=== PATIENT | female | born 2000 | race Caucasian/White ===

== ENCOUNTER 2020-06-26 16:01 | Emergency (ER) | payer OTHER ==
[~2020-06-26] VITALS: Ht 182.9 cm; Wt 104.3 kg
[2020-06-26 16:07] VITALS: BP 135/81
--- NOTE | 2020-06-26 16:22 | ER.PDOC ---
General Chief Complaint: Requesting Medical Care Stated Complaint: POSS UTI Time seen by MD: 16:16 Source: patient Exam Limitations: no limitations History of Present Illness Initial Comments Patient c/o 10 day history of urinary frequency, dysuria, hesitancy. She took AZO and drank lots of water and cranberry juice (which sometimes resolves issue) without relief. She denies fever. 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)) Family History Significant Family History: no pertinent family hx Social History Smoking: cigarettes Alcohol Use: occassionally Drug Use: marijuana Review of Systems Constitutional: no symptoms reported EENTM: no symptoms reported Respiratory: no symptoms reported Cardiovascular: no symptoms reported Gastrointestinal: no symptoms reported Genitourinary: burning, dysuria, frequency, urgency Musculoskeletal: no symptoms reported Skin: no symptoms reported Psychiatric/Neurological: no symptoms reported Endocrine: no symptoms reported Hematologic/Lymphatic: no symptoms reported All Other Systems: Reviewed and Negative Physical Exam General Appearance: No Apparent Distress, WD/WN EENT: eyes nml inspection, nml ENT inspection Neck: nml inspection, non-tender Cardiovascular/Respiratory: Regular Rate, Rhythm, Normal Breath Sounds, No Respiratory Distress Abdomen: Normal Bowel Sounds, Non Tender, Soft Back: nml inspection Extremities: No Pedal Edema, No Calf Tenderness Neurologic/Psychiatric: Alert, Normal Mood/Affect, Oriented x 3 Skin: Normal Color, Warm/Dry Results/Orders Results/Orders Orders - GEORGINA JOHN DO Urinalysis (06/26/20 16:14) Hcg Urine (06/26/20 16:14) Urine Culture (06/26/20 16:07) Vital Signs Date Time Temp Pulse Resp B/P (MAP) Pulse Ox O2 Delivery O2 Flow Rate FiO2 06/26/20 16:07 98.1 79 18 135/81 (99) 96 Room Air 06/26/20 16:07 98.1 79 18 06/26/20 16:07 98.1 79 16 96 Laboratory Tests Test 06/26/20 16:07 Urine Collection Type VOID Urine Color YELLOW (YELLOW) Urine Appearance CLEAR (CLEAR) Urine Bilirubin NEGATIVE MG/DL (NEGATIVE) Urine Ketones NEGATIVE (NEGATIVE) Urine Specific [place] 1.025 (1.005-1.035) Urine pH 5.5 (5.0-6.0) Urine Protein NEGATIVE (NEGATIVE) Urine Urobilinogen NORMAL (NEGATIVE) Urine Nitrate NEGATIVE (NEGATIVE) Urine Leukocyte Esterase SMALL (NEGATIVE) Urine Blood NEGATIVE (NEGATIVE) Urine RBC 0-2 RBC/HPF (NONE SEEN) Urine WBC 5-10 WBC/HPF (0-2) H Urine Squamous Epithelial Cells FEW #/HPF (FEW) Urine Bacteria FEW (NONE SEEN) H Urine Glucose NORMAL (NEGATIVE) Urine HCG, Qualitative NEGATIVE (NEGATIVE) Progress Progress Patient denies vaginal discharge or pelvic pain. She states her partner has not had discharge. Still, she is sexually active without protection and has urinary sx with an essentially clean UA. We will treat broadly to cover urine and potential STD. ER DEPART Departure Time of Disposition: 16:51 Disposition: 01 HOME, SELF-CARE Impression: Primary Impression: Dysuria Additional Impression: History of recurrent cystitis Condition: Stable Patient Instructions: Dysuria Referrals: PCP,UNKNOWN (PCP) PRIMARY CARE PROVIDER Additional Instructions: Return to ER for any emergent concerns. Follow up with doctor Richardson next week for reevaluation. Take antibiotics as prescribed until all gone. Duration or Time Spent with Pa: 20 min Problem Qualifiers GEORGINA JOHN DO Jun 26, 2020 16:22
[2020-06-26 16:34] LABS: APPEARANCE,URINE CLEAR (CLEAR); BILIRUBIN,URINE NEGATIVE (NEGATIVE); UA COLOR YELLOW (YELLOW); UROBILINOGEN,URINE NORMAL (NEGATIVE)
[2020-06-26] MEDS ORDERED: ROCEPHIN IM STA (16:43)
[2020-06-26] MEDS ORDERED: ROCEPHIN ONE (16:51)
== END 2020-06-26 17:20 | disposition home or self-care (01) ==
LOC: ER 16:01
DX: R30.0 Dysuria (principal); R39.15 Urgency of urination; F17.210 Nicotine dependence, cigarettes, uncomplicated
CPT/HCPCS: 81000; 81025; 87086; 96372; 99283; J0696

== ENCOUNTER 2020-06-27 13:53 | Emergency (ER) | payer OTHER ==
[~2020-06-27] VITALS: Ht 182.9 cm; Wt 101.2 kg
[2020-06-27 13:58] VITALS: BP 147/80
--- NOTE | 2020-06-27 14:28 | ER.PDOC ---
General Chief Complaint: Female Urogenital Problems Stated Complaint: FEMALE Time seen by MD: 14:22 Source: patient Exam Limitations: no limitations History of Present Illness Initial Comments Burning with urination and occasional suprapubic pain for 12 days. Patient was seen here yesterday but never treated for UTI so she is concerned. No fever or chills. Severity/Quality: moderate Associated Symptoms: dysuria Allergies: Coded Allergies: No Known Allergies (Unverified , 06/26/20) Past Medical History Medical History: other Surgical History: no surgical history Social History Drug Use: marijuana Review of Systems Constitutional: no symptoms reported Respiratory: no symptoms reported Cardiovascular: no symptoms reported Gastrointestinal: no symptoms reported Genitourinary: see HPI Musculoskeletal: no symptoms reported Skin: no symptoms reported All Other Systems: Reviewed and Negative Physical Exam General Appearance: No Apparent Distress, WD/WN EENT: eyes nml inspection Neck: nml inspection, non-tender Cardiovascular/Respiratory: Regular Rate, Rhythm, No M/R/G, Normal Peripheral Pulses, No JVD, Normal Breath Sounds, No Respiratory Distress Abdomen: Normal Bowel Sounds, Non Tender, Soft, No Organomegaly, No Pulsatile Mass Extremities: Normal Range of Motion, Non-Tender, Normal Inspection, No Pedal Edema, No Calf Tenderness, Normal Capillary Refill Neurologic/Psychiatric: mis specialist II-XII NML as Tested, No Motor/Sensory Deficits, Alert, Normal Mood/Affect, Oriented x 3 Skin: Normal Color, Warm/Dry Lymphatic: No Adenopathy Progress Progress Urinalysis done yesterday consistent with UTI especially in this setting with symptoms. Patient will be treated for UTI. ER DEPART Departure Time of Disposition: 14:26 Disposition: 01 HOME, SELF-CARE Impression: Primary Impression: UTI (urinary tract infection) Condition: Stable Referrals: PCP,UNKNOWN (PCP) PRIMARY CARE PROVIDER Additional Instructions: Macrobid F/U with your PCP in 1 week Return to ED if worsening symptoms or concerns Duration or Time Spent with Pa: 10 min Problem Qualifiers Primary Impression: UTI (urinary tract infection) Urinary tract infection type: site unspecified Hematuria presence: without hematuria Qualified Codes: N39.0 - Urinary tract infection, site not specified RAFAELA JERNIGAN MD Jun 27, 2020 14:27
== END 2020-06-27 14:38 | disposition home or self-care (01) ==
LOC: ER 13:53
DX: N39.0 Urinary tract infection, site not specified (principal); F12.90 Cannabis use, unspecified, uncomplicated
CPT/HCPCS: 99283